=== PATIENT | female | born 1980 | race Two or more races ===

== ENCOUNTER 2016-07-12 00:09 | Emergency (ER) | payer OTHER ==
--- NOTE | 2016-07-12 00:41 | PDOC ---
History of Present Illness - General Stated Complaint: GENERAL ILLNESS Past History - Past Medical History Allergies/Adverse Reactions: Allergies Allergy/AdvReac Type Severity Reaction Status Date / Time No Known Drug Allergies Allergy Verified 09/02/14 03:20 Home Medications: Ambulatory Orders NK [No Known Home Medication] 09/02/14 - Psycho/Social/Smoking Cessation Hx Anxiety: No Suicidal Ideation: No Smoking History: Never smoked Have you smoked in the past 12 months: No Hx Alcohol Use: No Drug/Substance Use Hx: No Substance Use Type: None *DC/Admit/Observation/Transfer Diagnosis at time of Disposition: Weakness - Discharge Dispostion Disposition: LEFT BEFORE TIMMY DAWSON
== END 2016-07-12 00:57 | disposition left against medical advice (07) ==
LOC: JER 00:09
DX: Z53.21 Procedure and treatment not carried out due to patient leaving prior to being seen by health care provider (principal)
CPT/HCPCS: 99281-25

== ENCOUNTER 2020-02-22 15:17 | Emergency (ER) | payer OTHER ==
[2020-02-22 15:51] VITALS: BP 100/55; PULSE 82; TEMP 97.6; BMI 22.6
== END 2020-02-22 17:08 | disposition home or self-care (01) ==
LOC: JER 15:17 → JERFT 15:17
DX: M77.11 Lateral epicondylitis, right elbow (principal)
CPT/HCPCS: 73070-TC-RT-FY; 99283-25

== ENCOUNTER 2021-09-14 09:55 | Emergency (ER) | payer OTHER ==
[2021-09-14 10:26] VITALS: BP 109/73; PULSE 100; TEMP 97.7; BMI 22.3
[2021-09-14] MEDS ORDERED: KETOROLAC TROMETHAMINE 30 MG/1 ML VIAL IM ONE (11:10)
[2021-09-14] MEDS ORDERED: CYCLOBENZAPRINE HCL 10 MG TABLET (FP) PO ONE (11:10)
[2021-09-14] MEDS ORDERED: CYCLOBENZAPRINE HCL 10 MG TABLET (FP) ONE (11:19)
[2021-09-14] MEDS ORDERED: KETOROLAC TROMETHAMINE 30 MG/1 ML VIAL ONE (11:20)
== END 2021-09-14 12:45 | disposition home or self-care (01) ==
LOC: JERFT 09:55
PROC: 3E0233Z Introduction of Anti-inflammatory into Muscle, Percutaneous Approach (ICD-10-PCS; principal; 2021-09-14)
DX: M54.50 Low back pain, unspecified (principal)
CPT/HCPCS: 99284-25

== ENCOUNTER 2022-01-19 20:43 | Emergency (ER) | payer OTHER ==
[2022-01-19 21:28] VITALS: BP 104/67; RESP 20; TEMP 98.1; BMI 22.3
[2022-01-19] MEDS ORDERED: diphenhydrAMINE HCL 25 MG CAPSULE (FP) PO ONE (22:29)
[2022-01-19 22:35] VITALS: PULSE 81
== END 2022-01-19 22:38 | disposition home or self-care (01) ==
LOC: JERFT 20:43 → JER 20:43 → JERFT 22:38
DX: T78.40XA Allergy, unspecified, initial encounter (principal)
CPT/HCPCS: 99283-25

== ENCOUNTER 2022-06-18 17:29 | Emergency (ER) | payer OTHER ==
[2022-06-18 17:51] VITALS: BMI 20.8
[2022-06-18] MEDS ORDERED: ALPRAZolam 0.25 MG TABLET PO ONE (19:16)
[2022-06-18] MEDS ORDERED: ALPRAZolam 0.25 MG TABLET ONE (19:48)
[2022-06-18 20:32] LABS: BASO % 0.7 % (0-2.0); HEMATOCRIT 34.2 % (32.4-45.2); HEMOGLOBIN 12.1 GM/dL (10.7-15.3); LYMPH % 23.4 % (8-40); MCH 33.9 pg (25.7-33.7); MCHC 35.5 g/dl (32.0-36.0); MEAN CELL VOLUME 95.5 fl (80-96); MEAN PLT VOLUME 9.7 fl (7.5-11.1); MONO % 9.3 % (3.8-10.2); NEUT % 65.6 % (42.8-82.8); PLATELET COUNT 286 10^3/uL (134-434); RBC 3.58 M/mm3 (3.60-5.2); RDW 13.9 % (11.6-15.6); WHITE BLOOD COUNT 9.2 K/mm3 (4.0-10.0)
[2022-06-18 20:56] LABS: CALCIUM 9.6 mg/dL (8.5-10.1)
[2022-06-18 20:57] LABS: BLOOD UREA NITROGEN 10.5 mg/dL (7-18)
[2022-06-18 21:00] LABS: CREATININE 0.7 mg/dL (0.55-1.3)
[2022-06-18 21:02] LABS: TOT PROT 8.3 g/dl (6.4-8.2)
[2022-06-18 21:28] VITALS: BP 110/77; PULSE 89; RESP 19; TEMP 97.9
== END 2022-06-18 21:27 | disposition home or self-care (01) ==
LOC: JER 17:29
DX: F41.9 Anxiety disorder, unspecified (principal); R07.89 Other chest pain; R00.0 Tachycardia, unspecified
CPT/HCPCS: 36415; 80053; 84443; 85025; 93005; 93010; 99284-25

== ENCOUNTER 2023-05-05 12:06 | Day surgery (SDC) | payer OTHER ==
[2023-05-05] MEDS: FERRIC CARBOXYMALTOSE 750 MG in SODIUM CHLORIDE 250 ML IVPB ONE (12:25)
[2023-05-05 15:47] VITALS: TEMP 98.6
[2023-05-05 16:13] VITALS: BP 100/52; PULSE 84; RESP 16
== END 2023-05-05 15:30 | disposition home or self-care (01) ==
LOC: JONCNONCHE 12:06 → J7W 12:07 → JONCNONCHE 15:30
PROVIDERS: ATTEND Internal Medicine Hematology & Oncology
PROC: 3E033GC Introduction of Other Therapeutic Substance into Peripheral Vein, Percutaneous Approach (ICD-10-PCS; principal; 2023-05-05)
DX: D50.9 Iron deficiency anemia, unspecified (principal)
CPT/HCPCS: 96365; J1439

== ENCOUNTER 2023-05-12 12:10 | Day surgery (SDC) | payer OTHER ==
[2023-05-12] MEDS: FERRIC CARBOXYMALTOSE 750 MG in SODIUM CHLORIDE 250 ML IVPB ONE (12:35)
[2023-05-12 18:18] VITALS: BP 104/55; PULSE 96; RESP 18; TEMP 98.2
== END 2023-05-12 13:30 | disposition home or self-care (01) ==
LOC: J7W 12:10 → JONCNONCHE 12:10
PROVIDERS: ATTEND Internal Medicine Hematology & Oncology
PROC: 3E033GC Introduction of Other Therapeutic Substance into Peripheral Vein, Percutaneous Approach (ICD-10-PCS; principal; 2023-05-12)
DX: D50.9 Iron deficiency anemia, unspecified (principal)
CPT/HCPCS: 96365; J1439

== ENCOUNTER 2024-04-16 12:51 | Day surgery (SDC) | payer OTHER ==
[2024-04-16] MEDS: FERRIC CARBOXYMALTOSE 750 MG in SODIUM CHLORIDE 250 ML IVPB ONE (14:21)
[2024-04-16 15:48] VITALS: RESP 18; TEMP 98.5
[2024-04-16 15:57] VITALS: BP 92/59; PULSE 83
== END 2024-04-16 15:15 | disposition home or self-care (01) ==
LOC: JONCCHEMO 12:51
PROVIDERS: ATTEND Internal Medicine Hematology & Oncology
PROC: 3E033GC Introduction of Other Therapeutic Substance into Peripheral Vein, Percutaneous Approach (ICD-10-PCS; principal; 2024-04-16)
DX: D50.9 Iron deficiency anemia, unspecified (principal)
CPT/HCPCS: 96365; J1439

== ENCOUNTER 2024-06-05 06:27 | Day surgery (SDC) | payer OTHER ==
[2024-06-05] MEDS ORDERED: ONDANSETRON 4 MG/2 ML VIAL IVPUSH PRN (07:56)
[2024-06-05] MEDS: ceFAZolin SODIUM 1 GM VIAL IVPB ONE (08:51)
[2024-06-05] MEDS ORDERED: DEXTROSE 50%-WATER 25 GM/50 ML DISP.SYRIN ONE (13:11)
[2024-06-05 15:04] LABS: HEMATOCRIT 29.7 % (34.1-44.9); HEMOGLOBIN 10.2 g/dL (11.2-15.7); MCHC 34.3 g/dl (32.2-35.5); MEAN CELL VOLUME 100.7 fl (79.4-94.8); MEAN PLT VOLUME 11.8 fl (9.4-12.3); PLATELET COUNT 203 x10^3/uL (182-369); RDW 14.4 % (12.2-17.1)
[2024-06-05 15:22] LABS: POTASSIUM 3.2 mmol/L (3.5-5.1)
[2024-06-05 15:26] LABS: BLOOD UREA NITROGEN 6.9 mg/dL (7-18); CALCIUM 8.5 mg/dL (8.5-10.1)
[2024-06-05] MEDS: SILVER SULFADIAZINE 1% TOP CREAM 50 GM JAR TP SCH (16:38)
[2024-06-05] MEDS: LACTATED RINGERS SOLUTION 1,000 ML IV SCH (17:07)
[2024-06-05] MEDS: POTASSIUM CHLORIDE TABS 20 MEQ TABLET.ER (FP) PO ONE (17:07)
[2024-06-05 18:17] LABS: CREATININE 0.7 mg/dL (0.55-1.3)
[2024-06-05] MEDS: oxyCODONE HCL 5 MG TABLET PO PRN (19:15)
[2024-06-05] MEDS: SIMETHICONE 80 MG TAB.CHEW (FP) PO PRN (21:35)
[2024-06-05] MEDS: IBUPROFEN (CALDOLOR) 800 MG/200 ML PREMIX BAGS IVPB ONE (21:48)
[2024-06-05 22:04] VITALS: RESP 18
[2024-06-05 22:13] LABS: ABSOLUTE IMMATURE GRANULOCYTES 0.09 x10^3/uL (0.0-0.031); BASOPHILS # 0.03 x10^3/uL (0.01-0.08); HEMOGLOBIN 10.3 g/dL (11.2-15.7); MCHC 34.3 g/dl (32.2-35.5); MEAN CELL VOLUME 101.7 fl (79.4-94.8); MEAN PLT VOLUME 12.4 fl (9.4-12.3); MONOCYTE # 0.87 x10^3/uL (0.24-0.86); MONOCYTE % 5.1 % (4.7-12.5); PLATELET COUNT 225 x10^3/uL (182-369); RDW 14.2 % (12.2-17.1)
[2024-06-05] MEDS: diphenhydrAMINE HCL 25 MG CAPSULE (FP) PO PRN (22:14)
[2024-06-05] MEDS: ACETAMINOPHEN 325 MG TABLET (FP) PO SCH (23:43)
[2024-06-06 01:19] VITALS: TEMP 98.1
[2024-06-06 08:01] LABS: ABSOLUTE IMMATURE GRANULOCYTES 0.05 x10^3/uL (0.0-0.031); BASOPHILS # 0.04 x10^3/uL (0.01-0.08); EOSINOPHIL % 0.6 % (0.7-5.8); EOSINOPHILS # 0.07 x10^3/uL (0.04-0.36); HEMATOCRIT 26.5 % (34.1-44.9); HEMOGLOBIN 8.9 g/dL (11.2-15.7); MCHC 33.6 g/dl (32.2-35.5); MEAN CELL VOLUME 101.5 fl (79.4-94.8); MONOCYTE # 1.06 x10^3/uL (0.24-0.86); MONOCYTE % 8.5 % (4.7-12.5); PLATELET COUNT 192 x10^3/uL (182-369); RDW 14.4 % (12.2-17.1)
[2024-06-06 08:22] LABS: POTASSIUM 3.6 mmol/L (3.5-5.1)
[2024-06-06 08:35] LABS: CALCIUM 8.2 mg/dL (8.5-10.1)
[2024-06-06 08:36] LABS: BLOOD UREA NITROGEN 7.9 mg/dL (7-18)
[2024-06-06 08:39] LABS: CREATININE 0.6 mg/dL (0.55-1.3)
[2024-06-06] MEDS: IBUPROFEN (CALDOLOR) 800 MG/200 ML PREMIX BAGS IVPB PRN (08:53)
[2024-06-06 09:05] VITALS: BP 94/52; PULSE 88
== END 2024-06-06 14:06 | disposition home or self-care (01) ==
LOC: JASUSAT 06:27 → J3W 16:53 → JASUSAT 06-06 14:06
PROVIDERS: ATTEND Obstetrics & Gynecology
PROC: 0UT7FZZ Resection of Bilateral Fallopian Tubes, Via Natural or Artificial Opening With Percutaneous Endoscopic Assistance (ICD-10-PCS; 2024-06-05)
PROC: 0UT9FZZ Resection of Uterus, Via Natural or Artificial Opening With Percutaneous Endoscopic Assistance (ICD-10-PCS; principal; 2024-06-05 08:00)
DX: N93.9 Abnormal uterine and vaginal bleeding, unspecified (principal); N80.03 Adenomyosis of the uterus; D25.1 Intramural leiomyoma of uterus; D25.0 Submucous leiomyoma of uterus; N83.8 Other noninflammatory disorders of ovary, fallopian tube and broad ligament; N88.8 Other specified noninflammatory disorders of cervix uteri
CPT/HCPCS: 36415; 36430; 80048; 81025; 85025; 86922; 88305-TC; 88307-TC; 94760